=== PATIENT | female | born 1965 | race Caucasian/White ===

== ENCOUNTER 2017-09-19 12:45 | Emergency (ER) | payer MEDICAID, MEDICARE ==
[2017-09-19 13:07] VITALS: BP 136/77
--- NOTE | 2017-09-19 14:46 | UC ---
General HPI - HPI Summary HPI Summary: Pt is a 51 y/o F w/ c/o pain in upper, left-sided tooth, second from the back of mouth. Pt reports she cannot go to dentist until Thursday which brought her here. Pain has been onging for a couple of days and is rated 8/10 on triage. She has been taking ibuprofen for pain. - History of Current Complaint Chief Complaint: UCDentalProblem Stated Complaint: DENTAL COMPLAINT Time Seen by Provider: 09/19/17 13:12 Hx Obtained From: Patient Onset/Duration: Lasting Days - a couple of days Current Severity: Severe Pain Intensity: 8 Pain Location at: upper left tooth, second from back of mouth Associated Signs & Symptoms: Positive: Other - No other Sx - Allergy/Home Medications Allergies/Adverse Reactions: Allergies Allergy/AdvReac Type Severity Reaction Status Date / Time codeine Allergy See Comment Verified 09/19/17 13:08 PMH/Surg Hx/FS Hx/Imm Hx Endocrine History: Other Other Endocrine History: NEGATIVE: diabetes Cardiovascular History: Other Other Cardiovascular History: NEGATIVE: HTN - Surgical History Surgical History: Yes Surgery Procedure, Year, and Place: 3-4 to lt hand, rt hand, rt knee reconstruction, tubal ligation - Family History Known Family History: Positive: Cardiac Disease - Social History Alcohol Use: Rare Substance Use Type: None Smoking Status (MU): Light Every Day Tobacco Smoker Type: Cigarettes Review of Systems Constitutional: Other - NEGATIVE: fever ENT: Dental Pain - upper left tooth, second from the back of the mouth All Other Systems Reviewed And Are Negative: Yes Physical Exam - Summary Physical Exam Summary: General: well-appearing, no pain distress Skin: warm, color reflects adequate perfusion, dry Head: normal Eyes: EOMI, DREAD ENT: left upper molar has a filling in it, there is gingival swelling; all else normal Neck: supple, nontender Respiratory: CTA, breath sounds present Cardiovascular: RRR Abdomen: soft, nontender Bowel: present Musculoskeletal: chronic left arm weakness, all else normal Neurological: sensory/motor intact, A&O x3 Psychological: affect/mood appropriate Triage Information Reviewed: Yes Vital Signs: Initial Vital Signs Temp 97.7 F 09/19/17 13:03 Pulse 73 09/19/17 13:03 Resp 18 09/19/17 13:03 BP 136/77 09/19/17 13:03 Pulse Ox 99 09/19/17 13:03 Vital Signs Reviewed: Yes Course/Dx - Differential Dx - Multi-Symptom Provider Diagnoses: TOOTHACHE Discharge - Sign-Out/Discharge Documenting (check all that apply): Patient Departure - Discharge Plan Condition: Stable Disposition: HOME Prescriptions: HYDROcodone/ACETAMIN 5-325 MG* [[place] 5-325 TAB*] 1 tab PO Q6H PRN #6 tab MDD 4 PRN Reason: Pain Penicillin VK 500 MG TAB(NF) [Penicillin VK 500 mg Tab] 500 mg PO QID #40 tab Patient Education Materials: Toothache (ED) Referrals: Boom Murillo MD [Primary Care Provider] - Additional Instructions: FOLLOW UP WITH YOUR DENTIST. GET RECHECKED FOR ANY WORSENING OF YOUR CONDITION OR QUESTIONS OR CONCERNS. - Billing Disposition and Condition Condition: STABLE Disposition: Home
== END 2017-09-19 13:21 | disposition home or self-care (01) ==
LOC: UCEAST 12:45
DX: K08.89 Other specified disorders of teeth and supporting structures (principal); Z88.5 Allergy status to narcotic agent; Z82.49 Family history of ischemic heart disease and other diseases of the circulatory system; F17.210 Nicotine dependence, cigarettes, uncomplicated
CPT/HCPCS: 99212; G0463

== ENCOUNTER 2024-04-08 09:24 | Inpatient (IN) ==
[2024-04-08] MEDS: fentaNYL 100 mcg/2 ml 50 MCG/ML VIAL IV SLOW PU ONE ×3 (09:51→12:52)
[2024-04-08] MEDS ORDERED: Bupivacaine 0.25% SDV 30 ML INJ ONE (11:11)
[2024-04-08] MEDS: Bupivacaine 0.25% SDV PF 10 ML VIAL INJ ONE (13:00)
[2024-04-08] MEDS: Lidocaine 1% MPF 2 ML VIAL INJ ONE (13:00)
[2024-04-08] MEDS: Acetaminophen IV 1 GM/100ML 1,000 MG/100 ML BAG IV SCH (16:19)
[2024-04-08 18:19] LABS: Hematocrit 41.2 % (35-45); Hemoglobin 14.6 g/dL (11.5-14.3); Mean Corpuscular Hemoglobin 31.3 pg (27-33); Mean Corpuscular Hgb Conc 35.5 g/dL (31-36); Mean Corpuscular Volume 88.1 fL (80-97); Mean Platelet Volume 9.2 fL (7.5-11.2); Platelet Count 181 10^3/uL (150-450); Red Blood Count 4.68 10^6/uL (3.63-4.92); Red Cell Distribution Width 12.6 % (12-17); White Blood Count 8.2 10^3/uL (3.8-11.8)
[2024-04-08 18:31] LABS: INR 0.95 (0.85-1.14)
[2024-04-08 18:55] LABS: Calcium 9.1 mg/dL (8.6-10.3); Creatinine, Serum 0.69 mg/dL (0.51-0.95); Potassium 3.7 mmol/L (3.5-5.0); eGFR CKD-EPI 101.2 (>60)
[2024-04-08] MEDS: Heparin 5000 UNITS/ML 1 mL VIAL SUBCUT SCH (21:51)
[2024-04-08] MEDS: NS 0.9% 1000 ml BAG 1,000 ML IV SCH (23:38)
[2024-04-09] MEDS ORDERED: Ondansetron 4 mg VIAL 2 MG/ML 2 ml VIAL ONE (13:07)
[2024-04-09] MEDS ORDERED: Lidocaine 2% PF 5 ML VIAL ONE (13:07)
[2024-04-09] MEDS ORDERED: fentaNYL 100 mcg/2 ml 50 MCG/ML VIAL ONE (13:07)
[2024-04-09] MEDS ORDERED: Propofol 10 MG/ML 20 ML BTL ONE (13:07)
[2024-04-09] MEDS ORDERED: Midazolam 2 mg/2 ml VIAL 1 mg/ml 2 ml VIAL (2 mg) ONE (13:07)
[2024-04-09] MEDS ORDERED: Dexamethasone IV 4 MG/ML VIAL 1 ml VIAL ONE (13:07)
[2024-04-09] MEDS ORDERED: Ondansetron 4 mg VIAL 2 MG/ML 2 ml VIAL IV PRN (14:54)
[2024-04-09] MEDS ORDERED: Metoclopramide 5 MG/ML VIAL (10 mg) IV PRN (14:54)
[2024-04-09] MEDS ORDERED: Naloxone 0.4 mg VIAL 0.4 mg/ml 1 ml VIAL IV PRN (14:54)
[2024-04-09] MEDS ORDERED: fentaNYL 100 mcg/2 ml 50 MCG/ML VIAL IV PRN (14:54)
[2024-04-09] MEDS ORDERED: NS 0.45% 1000 ml BAG 1,000 ML IV SCH (15:00)
[2024-04-09] MEDS: Lactated Ringers 1000 ml BAG 1,000 ML IV SCH (15:10)
[2024-04-09] MEDS ORDERED: Lidocaine 1% w EPI 1:200,000 SDV 30 ML VIAL ONE (15:13)
[2024-04-09] MEDS ORDERED: ROPIVACAINE 5 MG/ML 30 ML BTL (0.5%) ONE (15:15)
[2024-04-09] MEDS ORDERED: ceFAZolin VIAL VIAL ONE (16:11)
[2024-04-09] MEDS: Buffered Lidocaine 1% SYRIN 1 ml INTRADERM ONE (18:52)
[2024-04-09] MEDS: Scopolamine 1 mg/72hr PATCH TRANSDERM ONE (18:54)
[2024-04-09] MEDS: Acetaminophen IV 1 GM/100ML 1,000 MG/100 ML BAG IV ONE (19:20)
[2024-04-10 06:31] LABS: ABS Lymphocytes 0.7 10^3/uL (1.0-4.8); ABS Monocytes 0.3 10^3/uL (0.0-0.9); ABS Neutrophils 7.1 10^3/uL (1.5-7.6); Hematocrit 39.4 % (35-45); Hemoglobin 13.9 g/dL (11.5-14.3); Lymphocyte % 8.7 %; Mean Corpuscular Hemoglobin 31.4 pg (27-33); Mean Corpuscular Hgb Conc 35.3 g/dL (31-36); Mean Platelet Volume 9.4 fL (7.5-11.2); Nucleated Red Blood Cells % 0.1 %/100WBC (0.0-0.8); Platelet Count 162 10^3/uL (150-450); Red Blood Count 4.42 10^6/uL (3.63-4.92); Red Cell Distribution Width 12.6 % (12-17); White Blood Count 8.2 10^3/uL (3.8-11.8)
[2024-04-10 07:15] LABS: Calcium 8.4 mg/dL (8.6-10.3); Creatinine, Serum 0.57 mg/dL (0.51-0.95); Potassium 4.2 mmol/L (3.5-5.0); eGFR CKD-EPI 105.9 (>60)
[2024-04-10] MEDS ORDERED: Magnesium Hydroxide LIQ 30 ML UDC PO PRN (07:16)
[2024-04-10] MEDS ORDERED: ceFAZolin VIAL 2 GM in NS 0.9% 100 ml BAG 100 ML IVPB SCH (09:00)
[2024-04-10] MEDS: Magnesium Hydroxide LIQ 30 ML UDC PO SCH (10:09)
[2024-04-10] MEDS: ceFAZolin 2 GM PREMIX 2 GM/50 ML BAG IV SCH (10:11)
[2024-04-11] MEDS ORDERED: Morphine 2 MG/ML SYRINGE IV PRN (13:35)
[2024-04-13 11:00] VITALS: BP 103/79
== END 2024-04-13 10:45 | DRG 494 ==
LOC: ED 09:24 → SUATTDRO 15:26 → EDHOLD 15:26 → MEDTELE 16:33 → SSU 04-09 20:59 → MEDTELE 04-09 21:00 → SSU 04-10 07:24 → PMRU 04-13 10:58
PROVIDERS: ADMIT Hospitalist; ATTEND Student in an Organized Health Care Education/Training Program

== ENCOUNTER 2024-04-13 11:43 | Inpatient (IN) ==
[2024-04-13] MEDS ORDERED: Magnesium Hydroxide LIQ 30 ML UDC PO PRN (13:04)
[2024-04-13] MEDS ORDERED: Senna TAB 8.6 mg TAB PO PRN (13:04)
[2024-04-15 06:55] LABS: ABS Eosinophils 0.3 10^3/uL (0.0-0.5); ABS Lymphocytes 1.8 10^3/uL (1.0-4.8); ABS Monocytes 0.5 10^3/uL (0.0-0.9); ABS Neutrophils 3.1 10^3/uL (1.5-7.6); Eosinophil % 5.4 %; Hematocrit 38.8 % (35-45); Hemoglobin 13.8 g/dL (11.5-14.3); Lymphocyte % 31.1 %; Mean Corpuscular Hemoglobin 31.4 pg (27-33); Mean Corpuscular Hgb Conc 35.4 g/dL (31-36); Mean Corpuscular Volume 88.6 fL (80-97); Mean Platelet Volume 8.5 fL (7.5-11.2); Platelet Count 206 10^3/uL (150-450); Red Blood Count 4.38 10^6/uL (3.63-4.92); Red Cell Distribution Width 12.4 % (12-17); White Blood Count 5.7 10^3/uL (3.8-11.8)
[2024-04-15 07:21] LABS: Albumin 3.7 g/dL (3.5-5.7); Albumin/Globulin Ratio 1.6 (1-3); Calcium 9.1 mg/dL (8.6-10.3); Creatinine, Serum 0.66 mg/dL (0.51-0.95); Globulin 2.3 g/dL (2-4); Potassium 4.2 mmol/L (3.5-5.0); Total Bilirubin 0.6 mg/dL (0.2-1.0); eGFR CKD-EPI 102.3 (>60)
[2024-04-16 06:48] VITALS: BP 127/82
== END 2024-04-16 12:52 | disposition home or self-care (01) | DRG 561 ==
LOC: PMRU 11:43
PROVIDERS: ADMIT Physical Medicine & Rehabilitation; ATTEND Physical Medicine & Rehabilitation